=== PATIENT | female | born 1945 | race Caucasian/White ===

== ENCOUNTER 2020-11-07 13:52 | Emergency (ER) | payer BC ==
[~2020-11-07] VITALS: Ht 154.9 cm; Wt 76.7 kg
[2020-11-07 14:06] VITALS: BP_SYST 153
--- NOTE | 2020-11-07 14:06 | NUR ---
Patient to ER bed 6 to gown for evaluation. Side rails up. Report given to Lowell SOLIS.
--- NOTE | 2020-11-07 14:10 | NUR ---
Patient AAOx4 c/o headache for the past 2 weeks 02/08 after [place]. Patient has PMH of HTN, hyperlipidemia, and thyroid diseae. No signs or symptoms of acute distress noted, respirations even and unlabored.
--- NOTE | 2020-11-07 14:11 | NUR ---
ER Dr. Littlejohn at bedside examining patient.
[2020-11-07] MEDS ORDERED: IBUPROFEN 600 MG TABLET PO ONE (14:15)
[2020-11-07] MEDS ORDERED: HYDROcodone/ACETAMIN 5-325 MG TAB (NORCO/ VICODIN) PO ONE (14:15)
--- NOTE | 2020-11-07 14:30 | NUR ---
Patient transported to radiology via wheelchair, accompanied by radiology therapist.
--- NOTE | 2020-11-07 14:40 | NUR ---
Returns to ER department from radiology.
[2020-11-07 14:41] LABS: WHITE BLOOD COUNT (AUTO) 4.6 K/uL (4.8-10.8)
[2020-11-07 14:46] LABS: BASOPHILS % (AUTO) 0.6 % (0.0-2.0); EOSINOPHILS # (AUTO) 0.1 K/uL (0.0-0.4); EOSINOPHILS % (AUTO) 2.7 % (0.0-4.0); HEMATOCRIT 35.8 % (36-48); HEMOGLOBIN 11.8 g/dL (12.0-16.0); LYMPHOCYTES # (AUTO) 0.5 K/uL (1.0-5.5); MEAN CORPUSCULAR HEMOGLOBIN 30 pg (27-31); MEAN CORPUSCULAR HGB CONC 33 % (32-36); MEAN CORPUSCULAR VOLUME 91 fL (79.0-98.0); MONOCYTES # (AUTO) 0.4 K/uL (0.0-1.0); MONOCYTES % (AUTO) 8.5 % (1.7-9.3); NEUTROPHILS # (AUTO) 3.5 K/uL (1.8-7.7); NEUTROPHILS % (AUTO) 76.2 % (40.0-70.0); PLATELET COUNT (AUTO) 164 K/uL (130-430); RED BLOOD CELL COUNT(AUTO) 3.96 MIL/uL (4.2-6.2); RED CELL DISTRIBUTION WIDTH 15.3 % (9.0-15.0)
[2020-11-07 14:51] LABS: ANION GAP 6 (5-15); CALCIUM 9.1 mg/dL (8.4-11.0); CHLORIDE 103 mmol/L (98-107); CREATININE 0.68 mg/dL (0.55-1.30); GLUCOSE 102 mg/dL (70-99); POTASSIUM 3.7 mmol/L (3.5-5.1); SODIUM SERUM 138 mmol/L (136-145); UREA NITROGEN, BLOOD 15 mg/dL (8-21)
[2020-11-07 14:56] LABS: ALANINE AMINOTRANSFERASE 22 U/L (12-78); ALBUMIN 3.6 g/dL (3.4-4.8); ASPARTATE AMINOTRANSFERASE 14 U/L (10-37); C-REACTIVE PROTEIN QUANT 0.4 mg/dL (0-0.5); TOTAL BILIRUBIN 0.3 mg/dL (0.0-1.0)
[2020-11-07 14:59] LABS: INR 0.9 (0.8-1.2); PROTHROMBIN TIME 9.6 SECS (9.5-12.5)
[2020-11-07 15:31] LABS: ERYTHROCYTE SEDIMENTATION RATE 13 MM/HR (0-20)
[2020-11-07] MEDS ORDERED: HYDR-3917 PO (15:59)
[2020-11-07] MEDS ORDERED: IBUP-1969 PO (15:59)
[2020-11-07 16:20] VITALS: BP_SYST 149
--- NOTE | 2020-11-07 16:21 | NUR ---
Patient given written and verbal discharge instructions and verbalizes understanding. ER Dr. Littlejohn discussed with patient the results and treatment provided. Patient in stable condition. ID arm band removed. Rx of [place] given. Patient educated on pain management and to follow up with PMD. Pain Scale 0/10. Opportunity for questions provided and answered. Medication side effect fact sheet provided.
== END 2020-11-07 16:19 | disposition home or self-care (01) ==
LOC: SED 13:52
DX: R51.9 Headache, unspecified (principal); I10 Essential (primary) hypertension; Z88.5 Allergy status to narcotic agent; Z79.899 Other long term (current) drug therapy
CPT/HCPCS: 36415; 70450-TC; 76376; 80053; 85025; 85610-TC; 85651-TC; 85730-TC; 86140; 99284